=== PATIENT | female | born 1965 | race Caucasian/White ===

== ENCOUNTER 2023-09-16 10:27 | Outpatient (AMB) | payer OTHER, SELFPAY ==
--- NOTE | 2023-09-16 10:38 | AM.OFFWIN_ITS ---
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 Pt states she has a stuffy nose, head congestion, and pressure. 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 Reporting symptoms of sinus congestion, sore throat and difficulty swallowing. Low-grade fever. No family member is sick. No recent travel. Patient reports symptoms of malaise and fatigue. PFSH Social History Patient Tobacco Use Status: Current everyday Tobacco user Physical Exam Vital Signs: Last Vital Signs Temp 98.4 F 09/16/23 10:40 Pulse 101 H 09/16/23 10:40 BP 114/76 09/16/23 10:40 Pulse Ox 96 09/16/23 10:40 Oxygen Delivery Method Room Air 09/16/23 10:40 BMI result Body Mass Index 23.3 Const General: cooperative and healthy appearing Nutritional Appearance: well nourished Orientation/consciousness: patient oriented x3 Limitations: no limitations HEENT Head: Yes normal to inspection Eyes General: appearance normal, both eyes and all related structures Neck Neck: Yes normal visual inspection Chest Chest palpation & inspection: normal palpation of entire chest wall Resp Effort & Inspection: normal respiratory effort Neuro General: patient oriented x3 Assessment & Plan Assessment & Plan (1) Upper respiratory tract infection: Code(s): J06.9 - Acute upper respiratory infection, unspecified Plan: Antibiotics ordered. Increase fluid intake. Tylenol for aches and pains. If symptoms worsen, follow-up here for a recheck. Coding Level of Care Code Est Pt Level 3 (22268) Diagnoses Upper respiratory tract infection J06.9
[2023-09-16 10:40] VITALS: BP 114/76; PULSE 101; TEMP 36.9; O2SAT 96; BMI 23.3
== END 2023-09-16 11:25 | disposition home or self-care (01) ==
PROVIDERS: PCP Nurse Practitioner Family; Visit Provider Internal Medicine
DX: J06.9 Acute upper respiratory infection, unspecified (principal)
CPT/HCPCS: 99213

== ENCOUNTER 2025-05-18 08:30 | Outpatient (REF) | payer OTHER, SELFPAY ==
--- NOTE | ~2025-05-18 | XR_ITS ---
EXAMINATION: XR ANKLE, RIGHT CLINICAL INFORMATION: M25.571 - Pain in right ankle and joints of right foot. COMPARISON: None available. TECHNIQUE: AP, lateral, and mortise views of the right ankle. FINDINGS: On the AP and oblique views, there is a tiny cynthia of bone just inferior to the fibular head, which could represent a tiny avulsion fracture in the appropriate clinical setting. There is otherwise no fracture, dislocation, or suspicious bone lesion. There is normal alignment. Mortise is intact. Talar dome is normal. The subtalar joints and calcaneus appear normal. There is no evidence of ankle joint effusion. The soft tissues appear normal. XR/XR ankle RT min 3V IMPRESSION: 1. Query tiny avulsion fracture of the fibular head. Correlate for history of injury. 2. Otherwise, normal right ankle. Electronically signed by: Filippo Jorge MD 05/18/2025 11:51 AM EDT
--- OUTSIDE RECORDS SUMMARY | 2025-05-19 08:56 | XMS_ITS ---
Author Name [facility] Organization Unknown Care Team Organization Name Specialty Phone Email Start Date End Da te [facility] 10/09/2022 024 [facility] 06/11/20222023
--- OUTSIDE RECORDS SUMMARY | 2025-05-19 08:56 | XMS_ITS | Encounter Summary ---
Author Organization [facility] Address [address] [place] [address] Care Team Providers Care Director Industrial Relations Name Role Phone Margaret Reich MD Primary Care Provider [phone] Encounter Details Date Type Department Care Team ([facility] st Contact Info) Description 05/05/2025 Telephone Adult Medicine [facility] [address] [place] [phone] Margaret Reich MD [address] [place], [place] Social History Tobacco Use Types Packs/Day Years Used Date Smoking Tobacco: Every Day Cigarettes Smokeless Tobacco: Never Alcohol Use Standard Drinks/Week Comments Yes 0 (1 standard drink = 0.6 oz pur e alcohol) Housing Instability Answer Date Recorde d Are you worried that in the next 2 months you may not have stable housing? No 08/05/2024 Food Access & Nutrition Answer Date Rec orded Do you have access to a vari ety of food including fruits and vegetables? Yes 08/05/2024 Health Literacy Answer Date Recorded How often do you need to hav e someone help you when you read instructions, pamphlets, or other written material from your doctor or pharmacy? Never 08/05/2024 Caregiver: How often do you need to have someone help you when you read instructions, pamphlets, or other written material from your doctor or pharmacy? Not on file 08/05/2024 Financial Risk Answer Date Recorded How hard is it for you to pa y for the very basics like food, housing, medical care, and air conditioning / heating? Very hard 08/05/2024 Transportation Answer Date Recorded Has the lack of transportati on kept you from meetings, work, or from getting things needed for daily living? No Has the lack of transportati on kept you from medical appointments or from getting medications? No 08/05/2024 Social Isolation Answer Date Recorded How often do you feel lonely or isolated from th ose around you? Never 08/05/2024 Food Risk Answer Date Recorded Within the past 12 months we worried whether our food would run out before we got money to buy more. Sometimes true 025 Within the past 12 months th e food we bought just didn't last and we didn't have money to get more. Never true 08/05/2024 Dependent Care Answer Date Recorded Do you need help finding or paying for care for your loved ones. For example, child welfare consultant or elderly care for an older adult? No 08/05/2024 Education Answer Date Recorded Do you think completing more education or training, like finishing a GED, going to college, or learning a trade, would be helpful for you? No 08/05/2024 Employment and Income Answer Date Recor ded During the last four weeks, have you been actively looking for work? Patient declined 08/05/2024 Living Situation Answer Date Recorded What is your living situation? Unrecognized valu e 08/05/2024 Comments No Sex and Gender Information Value Date Recorded Sex Assigned at Female 06/24/2024 8:37 AM EST Legal Sex Female 9:48 PM EST Gender Identity Female 06/24/2024 8:37 AM EST Sexual Orientation Choose not to disclose 2023 5:21 PM EST Sexual Orientation Straight 06/28/2024 5: 21 PM EST documented as of this encounter Plan of Treatment Upcoming Encounters Date Type Department Care Team (Late st Contact Info) Description 07/15/2025 9:30 AM EST Office Visit Adult Medicine [address] [phone] Margaret Reich MD [address] [place] [address] 11/16/2025 10:15 AM EDT Office Visit [facility] [address] [phone] Fazal Rodriguez MD [address] [place] [phone] documented as of this encounter Visit Diagnoses Not on filedocumented in this encounter Additional Health Concerns Assessment Noted Time PHQ-9 Depression Total Score: 0 08/05/19 12:37 PM EST documented as of this encounter Care Teams Director Industrial Relations Relationship Specialty Start Date End Date Margaret Reich MD [address] [place] [phone] PCP - General Internal Medicine 08/11/24 documented as of this encounter
--- OUTSIDE RECORDS SUMMARY | 2025-05-19 08:56 | XMS_ITS | Clinical Summary ---
Author Organization [facility] [address] [facility] Address [address] [place] [address] Phone Care Team Providers Care Porcelain Waxer Name Role Phone Margaret Reich MD Primary Care Provider [phone] Allergies No known active allergies Medications magnesium oxide (MAG-OX) 400 mg (241.3 elemental magnesium) tablet Take 1 tablet (400 mg total) by mouth 1 (one) time each day. 90 tablet 03/30/20 25 Active simvastatin (ZOCOR) 40 mg tablet Take 1 Tablet by mouth at bedtime. 90 tablet 03/30/20 25 Active metoprolol succinate (TOPROL-XL) 50 mg 24 hr tablet Take 1 Tablet by mouth daily. 90 tablet 04/06/20 25 Active mometasone (ELOCON) 0.1 % cream Apply thin layer to the vulva nightly for 2 weeks and then every other night for 4 weeks. After 6 weeks use NEEDED FOR itching. 45 g 2 04/19/20 25 Active albuterol HFA (Ventolin HFA) 90 mcg/actuation inhaler Inhale 2 Puffs into the lungs every 4 hours as needed for Cough or Wheezing. 6.7 g 04/19/20 25 Active omeprazole (PriLOSEC) [address] capsule Take 1 capsule (40 mg total) by mouth 1 (one) time each day. 90 each 1 04/26/20 25 // 026 Active amLODIPine (NORVASC) 5 mg tablet Take 1 tablet (5mg total) by mouth 1 (one) time each day. 90 tablet 1 04/26/20 25 Active hydrOXYzine HCL (ATARAX) 10 mg tablet Take 1 tablet (10 mg total) by mouth every 8 (eight) hours if needed for anxiety. 270 tablet 05/05/20 25 Active lidocaine (LIDODERM) 5 % patch Apply to painful area 12 hours per day, remove for 12 hours. 30 each 2 05/16/20 25 Active hydrOXYzine HCL (ATARAX) 10 mg tablet Take 1 tablet (10 mg total) by mouth every 8 (eight) hours if needed for anxiety. 90 tablet 01/27/20 25 025 Discontinued(Re order) esomeprazole (NexIUM) [address] capsule Take 1 capsule (40 mg total) by mouth 2 (two) times a day. 180 capsule 04/19/20 25 025 Discontinued(Al ternate therapy) amLODIPine (NORVASC) 5 mg tablet Take 1 tablet (5 mg total) by mouth 1 (one) time each day. 30 tablet 04/19/20 25 025 Discontinued omeprazole (PriLOSEC) [address] capsule Take 1 capsule (40 mg total) by mouth 1 (one) time each day. 12/26/19 25 025 Discontinued(Du plicate order) Active Problems Problem Noted Date Diagnosed Date Anxiety 05/06/2025 Abnormal Pap smear of cervix 07/09/2024 Overview (07/09/2024): s/p LEEP; subsequent paps normal GERD (gastroesophageal reflux disease) Overview (07/09/2024): Esophageal motility disorder, Dr. Soares Normal gastric emptying study 04/2019 Palpitation 06/02/2023 Transaminitis 05/26/2019 IBS (irritable bowel syndrome) 01/21/2018 Overview (07/09/2024): Follows with GI Dr Soares Hypothyroidism 09/24/2017 Overview (07/09/2024): Follows with a naturopathic doctor Cervicalgia 08/26/2017 HTN (hypertension) 08/26/2017 Hyperlipidemia 08/26/2017 Migraine 08/26/2017 Encounters Date Type Department Care Team Description 05/05/2025 11:30 AM EDT Office Visit [address] [phone] Margaret Reich MD Primary osteoarthritis of right hand (Primary Dx); Primary hypertension; Mixed hyperlipidemia; Anxiety 05/05/[address] [phone] Margaret Reich MD from Last 3 Months Immunizations Immunization Administration Dates Next Due Pneumococcal polysaccharide 23 valent (Pneumovax 23) 2yo and older 04/18/2010 Td Tetanus diptheria (Tdvax) 7yo and older 09/30 Tdap Tetanus diptheria acell ular pertussis (Boostrix; Adacel) 7yo and older 06/23/2008 Surgical History Surgery Date Site/Laterality Comments OTHER SURGICAL HISTORY Bilateral PROCEDURE: ---- OTHER ----; COMMENT: breast silicone implants/augmentation OTHER SURGICAL HISTORY PROCEDURE: ---- OTHER ----; COMMENT: nasal septum repair CARPAL TUNNEL RELEASE Right PROCEDURE: CO NEUROPLASTY &/TRANSPOS MEDIAN NRV CARPAL TUNNE CERVICAL BIOPSY W/ LOOP ELECTRODE EXCISION PROCEDURE: CO CONIZATION CERVIX W/WO D&C RPR ELTRD EXC; COMMENT: subsequent pap normal OTHER SURGICAL HISTORY PROCEDURE: HISTORICAL D&C BREAST BIOPSY Bilateral PROCEDURE: BX BREAST; PERC NEEDLE CORE W/IMAG GUID; COMMENT: all b9 OTHER SURGICAL HISTORY PROCEDURE: IMPLANT BREAST SILICONE/EQ BREAST SURGERY Right PROCEDURE: CO UNLISTED PROCEDURE BREAST; COMMENT: b9 implants 2014 BREAST ENHANCEMENT SURGERY W IMPLANT Medical History Medical History Date Comments Abnormal Pap smear of cervix DX: Abnormal Pap smear of cervix; COMMENT: s/p LEEP; subsequent paps normal GERD (gastroesophageal reflux disease) DX:GERD (gastroesophageal reflux disease); COMMENT: Esophageal motility disorder, Dr. Soares Cervicalgia 08/26/2017 DX:Cervicalgia Migraine 08/26/2017 DX:Migraine HTN (hypertension) 08/26/2017 DX:HTN (hyper tension) Hyperlipidemia 08/26/2017 DX:Hyperlipidemi a Tobacco use DX:Tobacco use; COMMENT: Since age 15, 07/2017 Not interested in quitting. Hypothyroidism 09/24/2017 DX:Hypothyroidis m; COMMENT: Follows with a naturopathic doctor IBS (irritable bowel syndrome) 01/21/2018 D X:IBS (irritable bowel syndrome); COMMENT: Follows with GI Dr Soares Family History Medical History Relation Name Comments No Known Problems Brother 1 No Known Problems Brother 2 Other: pancreatic cancer Father Lung cancer Mother 2nd hand smoke Multiple sclerosis Sister Breast cancer Neg Hx Colon cancer Neg Hx Ovarian cancer Neg Hx Relation Name Status Comments Brother 1 Alive Brother 2 Alive Father Mother Sister Alive Social History Tobacco Use Types Packs/Day Years [...] care for your loved ones. For example, exceptional children teacher or elderly care for an older adult? [...] Orientation Straight 06/28/2024 5: 21 PM EST Obstetrics History Para Term AB IAB SAB Ectopic Multiple Livin g Live Births 0 0 0 Last Filed Vital Signs Vital Sign Reading Time Taken Comments Blood Pressure 122/78 05/05/2025 11:40 AM EDT Pulse 76 05/05/2025 11:40 AM EDT Temperature 36.4 C (97.5 F) 05/05/2025 11:40 AM EDT Respiratory Rate 14 05/05/2025 11:40 AM EDT Oxygen Saturation 98% 05/05/2025 11:40 AM EDT Inhaled Oxygen Concentration - - Weight 69.4 kg (153 lb) 05/05/2025 11:40 AM EDT Height 167.6 cm (5' 6 ) 05/05/2025 11:40 AM EDT Body Mass Index 24.69 05/05/2025 11:40 AM EDT Plan of Treatment Upcoming Encounters Date Type Department Care Team (Late st Contact Info) Description 07/15/2025 9:30 AM EST Office Visit Adult Medicine [address] [phone] Margaret Reich MD [address] [place] [address] 11/16/2025 10:15 AM EDT Office Visit [facility] [address] [place] [phone] Fazal Rodriguez MD [facility] [place] [phone] Health Maintenance Due Date Last Done Comments Hepatitis B Vaccines (1 of 3 - 19+ 3-dose series) 1986 Pneumococcal Vaccine: 50+ Years (2 of 2 - PCV) 04/18/2011 04/18/2010 RSV Immunization Adult Patients (1 - Risk 50-74 years 1-dose series) 2017 Zoster Vaccines (1 of 2) 2017 Lung Cancer Screening (Low Dose CT) 07/13/2022 Hypertension/CHF/CAD Annual BMP Blood Test 08/18/2024 08/18/2023 COVID-19 Vaccine (3 - 2024- season) 2025 09/04/2021, 08/14/2021 Social Influencers of Health Screening 08/05/2025 08/05/2024 Influenza Vaccine (#1) 2026 Postp oned from 04/04/2025 (Patient Refused) Cervical Cancer Screening: HPV 11/27/2026 11/27/2021 Breast Cancer Screening 12/28/2026 12/29/19, 12/18/2023, 12/18/2023, Additional history exists Colorectal Cancer Screening: Colonoscopy 07/13/2028 07/13/2018 DTaP,Tdap,and Td Vaccines (3 - Td or Tdap) 09/30/2028 09/30/2018, 06/23/2008 Cholesterol Screening (Lipid Panel) 04/18/2030 04/18/2025, 03/06/2023 HIV Screening Completed 08/20/2017 Hepatitis C Screening Completed 08/20/2017 Depression Screening Completed 08/05/2024, 08/18/19 24 HIB Vaccines Aged Out No longer eligi ble based on patient's age to complete this topic HPV Vaccines Aged Out No longer eligi ble based on patient's age to complete this topic Hepatitis A Vaccines Aged Out No long er eligible based on patient's age to complete this topic IPV Vaccines Aged Out No longer eligi ble based on patient's age to complete this topic MMR Vaccines Aged Out No longer eligi ble based on patient's age to complete this topic Meningococcal ACWY Vaccine Aged Out N o longer eligible based on patient's age to complete this topic Meningococcal B Vaccine Aged Out No l onger eligible based on patient's age to complete this topic RSV Immunization Patients Under 20 months Aged Out No longer eligible based on patient's age to complete this topic Varicella Vaccines Aged Out No longer eligible based on patient's age to complete this topic Procedures Procedure Name Priority Date/Time Associated Diagnosis Comments LIPID PANEL WITH REFLEX TO DIRECT LDL Routine 04/18/2025 8:56 AM EDT Mixed hyperlipidemia MG MAMMO DIGITAL SCREENING W OLIVERIO BILAT Routine 12/28/2024 9:39 AM EDT Encounter for screening mammogram for breast cancer DEPRESSION SCREENING Routine 08/18/2023 ANNUAL BMP BLOOD TEST Routine 08/18/2023 HPV Routine 11/27/2021 EXTERNAL COLONOSCOPY REPORT Routine 07/13/2018 10:05 AM EST HEPATITIS C SCREENING Routine 08/20/2017 HIV SCREENING Routine 08/20/2017 from Last 3 Months or Most Recently Relevant to Health Maintenance Results * (ABNORMAL) Lipid panel with reflex to direct LDL (04/18/2025 8:56 AM EDT) Cholesterol 180 0 - 200 mg/dL LAB CHEMISTRY METHOD 04/18/2025 1:06 PM EDT [facility] Triglycerides 228(H) 0 - 150 mg/dL LAB CHEMISTRY METHOD 04/18/2025 1:06 PM EDT [facility] HDL 40 >=40 mg/dL LAB CHEMISTRY METHOD 04/18/2025 1:06 PM EDT [facility] LDL Calculated 94 0 - 100 mg/dL LAB CHEMISTRY METHOD 04/18/2025 1:06 PM EDT [facility] Comment:Estimated LDL Calcul ated using equation: Total cholesterol - HDL cholesterol - (Triglycerides/5) VLDL Cholesterol Matthew 45.6 mg/dL LAB CHEMISTRY METHOD 04/18/2025 1:06 PM EDT [facility] Non HDL Chol. (LDL+VLDL) 140 <145 mg/dL LAB CHEMISTRY METHOD 04/18/2025 1:06 PM EDT [facility] Chol/HDL Ratio 4.5(H) 0.0 - 4.4 LAB CHEMISTRY METHOD 04/18/2025 1:06 PM EDT [facility] Blood Venous blood specimen / Unknown Venipuncture / Unknown 04/18/2025 8:56 AM EDT 04/18/2025 8:56 AM EDT us Margaret Reich MD LAB BLOOD ORDERABLES Final Resul t [facility] [address] [place] [address], * MG Mammo Digital Screening w Oliverio bilat (12/28/2024 9:39 AM EDT) Anatomical Region Laterality Modality Breast Bilateral Mammography 12/28/2024 11:5 0 AM EDT Impressions 12/28/2024 11:59 AM EDT Benign. Six-month follow-up breast MRI was recommended and has not yet been performed. Therefore, breast MRI is recommended to the scheduled. BI-RADS CATEGORY: 2 - BENIGN RECOMMENDATION: Screening bilateral mammogram is recommended in 1 year. Mammo Location: [facility], [address] [place] [address], [id number], . -------- FINAL REPORT -------- Dictated By: Linda Hankins Dictated Date: 12/28/2024 11:50 ET Assigned Physician: Linda Hankins Reviewed and Electronically Signed By: Linda Hankins Signed Date: 12/28/2024 11:59 ET Workstation ID: [id number] Transcribed By: Self Edit Transcribed Date: 12/28/2024 11:57 ET Narrative 12/28/2024 11:59 AM EDT CLINICAL: 59 years old, Female, routine annual exam. Clinical breast exam: . COMPARISON: Mammograms dating back to 10/23/2020 with most recent of 12/18/2023. Breast MRI 12/31/2023 and 06/24/2024. TECHNIQUE: Bilateral MLO and CC views were obtained digitally with 3-D mammogram (digital breast tomosynthesis). Implant-displaced and [id number]-[id number]-[id number] imaging was performed. Computer-aided detection was utilized in evaluation of this exam (CAD). FINDINGS: There is no evidence of suspicious mass or architectural distortion. No worrisome calcifications are evident. The visualized silicone implants are intact. There has been no significant change from prior exam(s). BREAST DENSITY: C - The breasts are heterogeneously dense which may obscure small masses. Procedure Note Linda Hankins MD - 12/28/2024 CLINICAL: 59 years old, Female, routine annual exam. Clinical breastexam: . COMPARISON: Mammograms dating back to 10/23/2020 with most recent of12/18/2023. Breast MRI 12/31/2023 and 06/24/2024. TECHNIQUE: Bilateral MLO and CC views were obtained digitally with 3-Dmammogram (digital breast tomosynthesis). Implant-displaced hwlvxw-ygrrhev-feapratui imaging was performed. Computer-aided detection wasutilized in evaluation of this exam (CAD). FINDINGS: There is no evidence of suspicious mass or architectural distortion. Noworrisome calcifications are evident. The visualized silicone implantsare intact. There has been no significant change from prior exam(s). BREAST DENSITY: C - The breasts are heterogeneously dense which mayobscure small masses. IMPRESSION: Benign. Six-month follow-up breast MRI was recommended and has not yetbeen performed. Therefore, breast MRI is recommended to the scheduled. BI-RADS CATEGORY: 2 - BENIGN RECOMMENDATION: Screening bilateral mammogram is recommended in 1 year. Mammo Location: [facility], [address] [place] [address], [id number], . -------- FINAL REPORT -------- Dictated By: Linda Hankins Dictated Date: 12/28/2024 11:50 ET Assigned Physician: Linda Hankins Reviewed and Electronically Signed By: Linda Hankins Signed Date: 12/28/2024 11:59 ET Workstation ID: [id number] Transcribed By: Self Edit Transcribed Date: 12/28/2024 11:57 ET Result [facility] Margaret Reich MD IMG BI PROCEDURES Final Result * Annual BMP Blood Test (08/18/2023) Pathologist [facility] Annual BMP Blood Test abstracted Historical Provider HEALTH MAINTENANCE Final Result * Depression Screening (08/18/2023) [facility] Depression Screening abstracted Historical Provider HEALTH MAINTENANCE Final Result * Cervical Cancer Screening: HPV (11/27/2021) [facility] Cervical Cancer Screening: HPV negative, abstracted Result [facility] Historical Provider HEALTH MAINTENANCE Final Result * External Colonoscopy Report (07/13/2018 10:05 AM EST) Anatomical Region Laterality Modality Endoscopy Result [facility] Historical Provider GI~PROCEDURE ORDERABLES F inal Result * HIV Screening (08/20/2017) [facility] HIV Screening abstracted Historical Provider HEALTH MAINTENANCE Final Result * Hepatitis C Screening (08/20/2017) [facility] Hepatitis C Screening abstracted Historical Provider HEALTH MAINTENANCE Final Result from Last 3 Months or Most Recently Relevant to Health Maintenance Insurance [facility] Care Teams Porcelain Waxer Relationship Specialty Start Date End Date Margaret Reich MD [address] [place] [phone] PCP - General Internal Medicine 08/11/24
== END 2025-05-18 08:31 | disposition home or self-care (01) ==
LOC: HO.HOSX 08:30
PROVIDERS: Visit Provider Physician Assistant
DX: S93.401A Sprain of unspecified ligament of right ankle, initial encounter (principal); X50.1XXA Overexertion from prolonged static or awkward postures, initial encounter
CPT/HCPCS: 73610; 99202

== ENCOUNTER 2025-05-18 11:36 | Outpatient (AMB) | payer OTHER, SELFPAY ==
--- NOTE | 2025-05-18 11:41 | A.OFFVIS_ITS ---
Vital Signs 05/18/25 11:49 Height 5 ft 6 in Weight 150 lb BMI 24.2 Intake Visit Reasons: UC f/u RT ankle avulsion Intake Note: Nel is a 59 year old female who presents today as a new patient for an urgent care follow up of right ankle fracture, DOI 04/19/25. Patient presented to [facility], with complaints of pain and swelling, reporting she was leaving her home and stepped down wrong off the steps causing her to twist her ankle. She was placed in a boot and referred to orthopedics. Today patient reports that she is doing a lot better, still has some discomfort at the lateral and medial aspect of ankle. States her bruising is improving. Currently working with no restrictions. Allergies No Known Allergies Allergy (Verified 05/18/25 11:50) Medication List - Last Reconciled 05/18/25 by Arianne Lebron PA-C albuterol sulfate 90 mcg/actuation (Ventolin HFA) inhalation amlodipine 5 mg PO DAILY esomeprazole magnesium 40 mg PO DAILY hydroxyzine HCl 10 mg PO TID magnesium oxide 400 mg PO DAILY metoprolol succinate ER 50 mg PO DAILY ondansetron HCl 4 mg PO Q8H PRN simvastatin 40 mg PO BEDTIME HPI HPI UC f/u RT ankle avulsion: Details: 59-year-old female presents to the office today for an injury she sustained to her right ankle on 04/19/2025. She states she was walking and stepped down on the steps wrong when she twisted her ankle. She was seen at an urgent care facility where x-rays were obtained and she was placed in a walking boot and referred to our office for ortho eval. She states since the date of injury the swelling and pain have subsided. [facility] Social History (Updated 05/18/25 @ 11:48 by ELIGIO Flores) Patient Tobacco Use Status: Current everyday Tobacco user Current occupational status: employed Current occupation: SUPERVISOR [employer] Review of Systems Const All systems reviewed & are unremarkable except as noted in HPI and below Physical Exam Vital Signs: BMI result Body Mass Index 24.2 Const General: cooperative and no acute distress Orientation/consciousness: patient oriented x3 Resp Effort & Inspection: normal respiratory effort and able to speak in complete sentences Cardio Peripheral pulses: Peripheral pulses 2+ throughout Neuro General: patient oriented x3 Extrem Other: Right ankle is normal to inspection no significant swelling. No ecchymosis. Mild tenderness over the ATFL. Full range of motion without crepitus or laxity. Neurovascularly intact. Results Reviewed Results Reviewed: X-rays of the right ankle obtained in the office today and reviewed by me show a small avulsion fragment at the base of the medial malleolus. Assessment & Plan Assessment & Plan (1) Right ankle sprain: Code(s): S93.401A - Sprain of unspecified ligament of right ankle, initial encounter Category: Medical Plan: She was given a lace-up ankle brace to use while weight-bearing as tolerated with regular street shoes. She can discontinue the use of the boot. I did place an order for physical therapy to work on range of motion gentle strength and proprioceptive training. I did stress the importance of working with physical therapy to regain her strength and stability and reduce the risk of chronic pain and further injury. The patient does express understanding and will see me back if symptoms persist or worsen otherwise follow up as needed. Orders: Orders PT Evaluation and Treatment Today S93.401A - Sprain of unspecified ligament of right ankle, initial encounter XR ankle RT min 3V Today M25.571 - Pain in right ankle and joints of right foot Coding Level of Care Code New Pt Level 3 (22198) Complex EM visit Add On G2211 Diagnoses Right ankle sprain S93.401A
[2025-05-18 11:49] VITALS: BMI 24.2
--- OUTSIDE RECORDS SUMMARY | 2025-05-18 14:42 | XMS_ITS | Data Portability ---
Author Organization [facility], [address] Address [address] [place] [address] Assessment No assessment recorded. Plan of Treatment Reminders Order Date Submit Date Provider Last Modified By Organization Details Last Modified Time Details Appointments None recorded. Lab None recorded. Referral None recorded. Procedures None recorded. Surgeries None recorded. Imaging XR, chest, 2 view 2023 024 [address], [address] [place], [address], 4 14:53:16 Medication Orders azithromyci n 250 mg tablet 2023 024 [facility] #[id number], [address] [facility] [place], [address], 4 14:50:32 ProAir HFA 90 mcg/actuati on aerosol inhaler 2023 024 [facility] #[id number], [address] [place], [address], 4 18:22:23 prednisone 20 mg tablet 2023 024 [facility] #[id number], [address] [place], [address], 4 18:22:23 benzonatate 200 mg capsule 2023 024 [facility] #[id number], [address] [place], [address], 4 18:22:23 Patient TargetsNo targets recorded. Patient Instructions Encounter Date Encounter Id Patient Instructions Last Modified By Organization Details Last Modified Time 09/19/2023 [id number] bronchitis: care instructions Not available 09/19/2023 18:22:18 09/23/2023 [id number] cough: care instructions Not available 09/23/2023 14:17:28 Reason for Referral None Reported. Results Created Date Observation Date Name Description Value Unit Range Abnormal Flag Note LastModifiedBy Organization Detail LastModifiedTime 09/23/19 24 09/23/2023 XR, chest , 2 view No observ ation record ed. [email or web address] [facility] [address] [place], [address], 09/23/2023 15:07:10 Result Notes None recorded. Problems Name Problem SNOMED Code Status Onset Date Resolution Date Notes Provider Name and Address Organization Details Recorded Time Asthma 020069125 Active ABHIJIT dailey, PA - [facility] 4 14:10:03 Hyperlipidemia 84579880 Active 2023 CHARLY Baltazar [address] , [place], [address], [place] - [facility] 4 18:17:43 Hypertensive disorder 97475809 Active 2023 CHARLY Baltazar [address] , [place], [address], [place] - [facility] 4 18:17:53 Gastroesophage al reflux disease 294214975 Active 2023 CHARLY Baltazar [address] , [place], [address], [place] - [facility] 4 18:18:06 Esophageal dysmotility 919793926 Active 2023 CHARLY Baltazar [address] , [place], [address], [place] - [facility] 4 18:18:30 Problem Notes None recorded. Procedures Surgical History Date Name Laterality Status Provider Name and Address Organization Details Recorded Time 09/19/19 24 Virtual Visit completed CHARLY Baltazar [address] [place], [address], [place] - [facility] 09/19/2023 18:14:24 Carpal tunnel surgery completed ABHIJIT NIEVES PA - [facility] 09/23/2023 14:07:42 Breast augmentation w/implt completed ABHIJIT NIEVES PA - [facility] 09/23/2023 14:07:56 Imaging Results None recorded. Procedure Notes None recorded. Medical Equipment None Reported. Allergies No known drug allergies Medications Name Sig Start Date Stop Date Status Note LastModified by Organization Details LastModified Time azithromycin 250 mg tablet TAKE 2 TABLETS BY MOUTH TODAY, THEN TAKE 1 TABLET DAILY FOR 4 DAYS DIRECTED active Not Available Not Available No t Available benzonatate 200 mg capsule TAKE 1 CAPSULE BY MOUTH THREE TIMES A DAY FOR 5 DAYS *NOT COVERED active Not Available Not Available No t Available metoprolol succinate ER 50 mg tablet,extende d release 24 hr TAKE 1 TABLET BY MOUTH EVERY DAY active Not Available Not Available No t Available ondansetron HCl 4 mg tablet active Not Available Not Available Not Available famotidine 40 mg tablet active Not Available Not Available No t Available prednisone 20 mg tablet TAKE 3 TABS A DAY FOR 3 DAYS, 2 TABS A DAY FOR 3 DAYS, 1 TAB A DAY FOR 3 DAYS active Not Available Not Available No t Available amlodipine 5 mg tablet TAKE 1 TABLET BY MOUTH EVERY DAY active Not Available Not Available No t Available simvastatin 40 mg tablet active Not Available Not Available No t Available magnesium oxide 400 mg (241.3 mg magnesium) tablet TAKE 1 CAPSULE (400 MG) BY MOUTH DAILY. active Not Available Not Available No t Available esomeprazole magnesium 40 mg capsule,delaye d release Take 1 capsule every day by oral route. active Not Available Not Available No t Available hydroxyzine HCl 10 mg tablet TAKE 1 TABLET BY MOUTH THREE TIMES A DAY NEEDED FOR ANXIETY active Not Available Not Available No t Available mometasone 0.1 % topical cream APPLY THIN LAYER TO THE VULVA NIGHTLY FOR 2 WEEKS AND THEN EVERY OTHER NIGHT FOR 4 WEEKS. AFTER 6 WEEKS USE NEEDED FOR ITCHING active Not Available Not Available No t Available Ventolin HFA 90 mcg/actuation aerosol inhaler INHALE 2 PUFFS INTO THE LUNGS EVERY 4 HOURS FOR 30 DAYS active Not Available Not Available No t Available hydroxyzine HCl active Not Available Not Available Not Available amlodipine active Not Available Not Av ailable Not Available simvastatin active Not Available Not A vailable Not Available metoprolol succinate active Not Available Not Available No t Available ondansetron active Not Available Not A vailable Not Available Nexium active Not Available Not Availa ble Not Available magnesium 400 mg (as magnesium oxide) tablet Take by oral route. active Not Available Not Available No t Available Vitals Date Recorded Body height Body mass index (BMI) Body weight Body temperature Respiratory rate Heart rate Oxygen saturation Oxygen saturation in Arterial blood by Pulse oximetry Systolic And Diastolic Provider Name and Address Organization Details Last Updated DateTime 4 167.64 cm 23.2 kg/m2 00306.3 g 98.7 [degF] 18 /min 104 /min 95 % 95 % 126/87 mm[Hg] ABHIJIT NIEVES PA [facility] 4 14:12:23 Social History Question Answer Notes LastModified by [employer] Details LastModified Time Tobacco Smoking Status Current Every Day Smoker ABHIJIT dailey PA [place] [facility] 09/23/2023 14:08:16 Which Illicit Or Recreational Drugs Have You Used? Marijuana Information not available 09/23/2023 How Much Tobacco Do You Smoke? 0.5 PPD Information not available 09/23/2023 Sex: Unknown Functional Status Question Answer Note LastModified by [employer] Details LastModified Time Do you use any illicit or recreational drugs? Yes Information not available 09/23/2023 What is your level of alcohol consumption? Occasional Information not available 09/23/2023 Mental Status None recorded. Family History Nothing Reported. Medical History No medical history recorded. Gynecological History Statement/Question Response Is there any chance of ? No Obstetrics History GPAL:G 0 P 0 0 0 0 Immunizations Vaccine Type Date Status Note Provider Nam e and Address Organization Details Recorded Time COVID-19, mRNA, LNP-S, PF, 30 mcg/0.3 mL dose 2 completed CHARLY Baltazar [address] [place], [address], [place] - [facility] 09/19/2023 18:15:46 COVID-19, mRNA, LNP-S, PF, 30 mcg/0.3 mL dose 2 completed CHARLY Baltazar [address], [place], [address], [place] - [facility] 09/19/2023 18:15:46 pneumococcal polysaccharide PPV23 0 completed CHARLY Baltazar [address], [place], [address], [place] - [facility] 09/19/2023 18:15:46 Tdap 8 completed CHARLY Baltazar [address], [place], [address], [place] - [facility] 09/19/2023 18:15:46 Td (adult), 2 Lf tetanus toxoid, preservative free, adsorbed 9 completed CHARLY Baltazar [address], [place], [address], [place] - [facility] 09/19/2023 18:15:46 Past Encounters Encounter ID Performer Location Encounter Start Date Encounter Closed Date Diagnosis/Indication Diagnosis SNOMED-CT Code Diagnosis ICD10 Code Diagnosis IMO Codes Diagnosis Note [id number] [address] [address] [place] [address] 11/06/2018 11:49:24 11/06/2018 12:14:18 [id number] [address] [place] [address] 02/27/2019 13:00:37 02/27/2019 14:10:59 [id number] [address] [place] [address] 07/16/2019 13:50:51 07/16/2019 14:54:54 [id number] [address] [place] [address] 10/31/2020 14:26:54 10/31/2020 15:44:48 [id number] [address] [place] [address] 08/16/2017 13:12:34 08/16/2017 14:17:12 [id number] [address] [place] [address] 04/03/2016 13:40:13 04/03/2016 14:22:58 [id number] [address] [place] [address] 06/09/2020 12:03:50 06/09/2020 14:46:53 [id number] [address] [place] [address] 06/03/2015 08:18:01 06/03/2015 08:51:05 [id number] [address] [place] [address] 11/28/2015 11:22:09 11/28/2015 12:39:13 [id number] CHARLY Baltazar [address] [address] 09/19/2023 18:02:22 09/19/2023 19:18:17 Acute bronchitis 00623235 J20.9 Acute bronchitis is a common clinical condition characteri zed by an acute onset but persistent cough, with or without sputum production . It is typically self-limit ed, resolving within one to three weeks. Symptoms result from inflammati on of the lower respirator y tract and are most frequently due to viral infection. Treatment is focused on patient education and supportive care. Antibiotic s are not needed for the great majority of patients with acute bronchitis but are greatly overused for this condition. Reducing antibiotic use for acute bronchitis is a national and internatio [facility] health care priority. In most patients, the cough persists for 1 to 3 weeks, with a average duration of 18 days. The cough may be associated with either purulent or nonpurulen t sputum production The presence of purulent sputum is a nonspecifi c finding and does not appear to be predictive of bacterial infection or that antibiotic s are needed. For the great majority of patients, use of antibiotic s does not hasten recovery or prevent complicati ons but puts patients at increased risk of adverse effects including potentiall y severe complicati ons such as Clostridio ides difficile infection and anaphylaxi s. Non-Pharma cological treatment for coughin . Throat lozenges2. Hot tea3. Honey4. Smoking cessation5 . Avoidance of secondhand smoke. Pharmacolo gical Treatment: 1. Robatussin or Guafenasin 2. Antihistam ines3. Dextrometh oraphen I would plan on being seen again if any of the following symptoms develop:1. Fever (100.5)2. Shortness of breath3. Wheezing4. Worsening Cough. I would go to the ER if you develop:1. Severe Shortness of breath2. Chest Pain3. Wheezing4. Coughing up Blood [id number] CHARLY Baltazar [address] [facility] [address] [place] [address] 09/23/2023 13:51:35 09/23/2023 14:53:16 Cough 85109521 R05.9 You are being treated for a cough that most likely starting to turn into a bacterial infection. There is possibly a small pneumonia starting in your right lung. Please continue with the prednisone you were prescribed and the inhaler as needed The following are my recommenda tions to help you with your symptoms and recovery.1 . Take Ibuprofen or Tylenol if you do not have any allergies to these medication s. If you take a blood thinner you should not take NSAIDS like Ibuprofen. These medication will help with the inflammati on in your respirator y tract which should help the cough.2. Do not take any decongesta nts at this time because this will dry out that tract too much. If you have a lot of nasal congestion you can try nasal decongesta nts, but I would not take them more than 5 days.3. Use a humidifier or add a cup of water by your bed. Sometimes if our sleeping environmen t is too dry this can lead to cough4. Salt Water Gargles5. Saline nasal spray is helpful. I would be seen again if you develop any of the following. 1. Cough last longer than 3 weeks - and has not worsened2. You develop a thick productive cough3. Develop shortness of breath or wheezing4. Develop achy feel or discomfort in a specific chest location5. Fever > 100.5 I would go immediatel y to the Emergency Room if you develop:1. Chest Pain2. Severe Shortness of breath3. Coughing up Blood. Most coughs will resolve on their own without any interventi on in 3 weeks. If they last longer we need to evaluate and rule out some other condition like Acid Reflux, or lung pathology. Thank you for using [facility] today - please don't hesitate to contact up or return to see if you have any questions or concerns. Health Concerns Section Related Observation LastModified by Organization Detai ls LastModified Time None Recorded Concern Status LastModified by Organization Details LastModified Time None Recorded Advance Directives Directive None Recorded Payers Insurance Date Sequence Insurance Name Policy Number Policy Taveras Covered Member ID Taveras Member ID Guarantor Name 09/23/2023 1 [facility] (MEDICAID REPLACEMENT - HMO) JR Nel Kee [id number] Nel Kee Notes Date Note Type Note Provider Name and Address Organization Details Recorded Time 09/19/19 24 text/ht ml CoughReported by PatientHPIFor associated symptoms, patient reportspost nasal dripbut reportsno fever,no chills,no chest pain,no heartburn,no nausea,no vomiting,no edema,no agitation, andno wheezing. For source of patient information, patient reportsinformation obtained from patientandpatient arrived at urgent care ambulatory. For quality, patient reportsintermittentandsymptoms worse with lying down. For severity, patient reportsmoderate. For duration, patient reportsintermittent. For timing, patient reportsimproving. For context, patient reportspatient denies vapingandnon-smoker. Verified the Patient's Name and at the start of visit.Audio/Visual Technology was used and functioning properly.Patient (and Guardian) - verbally understands limitations of a medical exam using A/V Technology - understands alternative treatment would be to visit an on-site medical facility.The patient did confirm they are physically located in the state that I hold a valid medical license. 57 y/o female with recurrent bronchitis for virtual visit. she started taking azithromycin for sinus infection 3 days ago and is now having cough and wheeze. This happens annually and she usually needs prednisone and an inhaler [place], [address], [place] [facility] [place] [facility] 09/19/2023 18:25:33 09/23/19 24 text/ht ml 57 y/o female here with worsening cough. Was treated with azithro a week ago, then started on prednisone and albuterol for cough and wheezing. She is still wheezing and is having a very hard time sleeping [place], [address], PA - [facility] 09/23/2023 14:53:04 OBGyn Episode No OBEpisode recorded.
== END 2025-05-18 12:03 | disposition home or self-care (01) ==
LOC: HO.HOS 11:36
PROVIDERS: PCP Nurse Practitioner Family; Visit Provider Physician Assistant
DX: S93.401A Sprain of unspecified ligament of right ankle, initial encounter (principal)
CPT/HCPCS: 99203

== ENCOUNTER → 2025-05-18 11:37 | Outpatient (BNV) | payer OTHER, SELFPAY | PROVIDERS: Visit Provider Radiology Diagnostic Radiology | DX: M25.571 Pain in right ankle and joints of right foot (principal) | CPT/HCPCS: 73610 ==

== ENCOUNTER 2025-06-27 11:28 | Outpatient (AMB) | payer OTHER, SELFPAY ==
[2025-06-27 12:01] VITALS: BP 114/70; PULSE 77; RESP 14; TEMP 36.9; O2SAT 96; BMI 25.8
--- NOTE | 2025-06-27 12:01 | MHC.OFFWIV ---
Intake Vital Signs 06/27/25 12:01 Height 5 ft 6 in Weight 160 lb BMI 25.8 BP 114/70 Blood Pressure Location Rt brachial Position Sitting Respiration 14 Pulse 77 Pulse Source Pulse Oximeter Temp 98.4 F Temp Source Oral Pulse Oximetry (%) 96 Intake Visit Reasons: EP Cough Intake Note: pt presents with chest congestion with productive coughing x 8 days Patient Tobacco Use Status: Current everyday Tobacco user Allergies No Known Allergies Allergy (Verified 06/27/25 12:02) Do you need a note to return to daycare/school/sports/work: No HPI HPI Comments History of Present Illness Details History - The patient is a 59-year-old male presenting with cough, wheezing, and difficulty sleeping due to respiratory symptoms. - The patient reports a history of cold symptoms with a productive cough and wheezing that started a week ago. - The patient denies any history of COPD or asthma. - The patient experienced a low-grade fever and fatigue but reports feeling better now, although sleep is still affected. - The patient had a similar illness three years ago, which nearly progressed to pneumonia, requiring antibiotics. - The patient is currently using kmwq-hxo-mmfzsnr cough medication. - She denies fever, chills, CP, SOB, abd pain, or n/v/d. Physical Exam General: Cooperative, healthy appearing, comfortable and no acute distress Orientation/consciousness: Patient oriented x3 Limitations: No limitations Head: Normal to inspection Ears: Hearing grossly normal bilaterally, external ears normal and TM's normal bilaterally Nose: Normal external nose present, normal nares present, and no nasal discharge present. Face and sinus: Sinuses nontender to palpation. Mouth: Normal oral and palatal mucosa present and moist mucous membranes noted. Throat: Tonsils normal. Uvula is midline. Posterior oropharynx with erythema and no exudates. Eyes: Appearance normal, both eyes and all related structures Neck: Normal visual inspection, full ROM. No lymphadenopathy noted. Respiratory: Clear to auscultation bilaterally. Normal respiratory effort, able to speak in complete sentences. No respiratory distress, not tachypneic, no tripod positioning and no use of accessory muscles. Cardiovascular: Regular rate and rhythm. Normal S1 and S2. No m/r/g noted Skin: No rashes or lesions noted Patient was informed and verbally consented to the use of an ambient scribe for clinic note documentation during this visit [facility] Social History (Updated 05/18/25 @ 11:48 by Ginny Moreno [facility]) Patient Tobacco Use Status: Current everyday Tobacco user Current occupational status: employed Current occupation: [employer] Review of Systems Const All systems reviewed & are unremarkable except as noted in HPI and below Physical Exam Vital Signs: Last Vital Signs Temp 98.4 F 06/27/25 12:01 Pulse 77 06/27/25 12:01 Resp 14 06/27/25 12:01 BP 114/70 06/27/25 12:01 Pulse Ox 96 06/27/25 12:01 BMI result Body Mass Index 25.8 Assessment & Plan Assessment & Plan (1) Cough: Code(s): R05.9 - Cough, unspecified Qualifiers: Cough type: acute Qualified Code(s): R05.1 - Acute cough Plan Most likely URI vs covid vs flu vs RSV vs bronchitis vs pneumonia plan - Prescribed azithromycin (Z-Nas) for bacterial coverage. - Prescribed prednisone to reduce inflammation and improve breathing. - Prescribed cough medicine to alleviate symptoms. - Prescribed an inhaler to assist with wheezing and respiratory distress. - Discussed the possibility of a viral infection given the symptoms and current viral trends. - will call with results of the resp panel - Advised holding hydroxyzine while on azithromycin to avoid interactions. - follow up as needed Orders: Orders SARS-CoV2/FLU/RSV Today R09.89 - Other specified symptoms and signs involving the circulatory and respiratory systems Medications: New benzonatate 100 mg PO bid-tid PRN 21 caps 0RF Cough 7 days prednisone 40 mg (2 x 20 mg) PO DAILY 10 tabs 0RF 5 days albuterol sulfate 90 mcg/actuation 2 puffs inhalation Q6H PRN 8.5 grams 0RF shortness of breath or wheezing or cough azithromycin For 250 mg dose pack: take 500 mg today (day 1), then 250 mg for 4 days (days 2-5) PO 6 tabs 0RF Coding Level of Care Code Est Pt Level 3 (70180) Diagnoses Acute cough R05.1 Cough type: acute
--- OUTSIDE RECORDS SUMMARY | 2025-06-27 15:09 | XMS_ITS | Clinical Summary ---
Author Organization [facility] [address] [facility] Address [address] [place] [address] Phone Care Team Providers Care Pacu Rn Name Role Phone Margaret Reich MD Primary Care Provider [phone] Allergies No known active allergies Medications metoprolol succinate (TOPROL-XL) 50 mg 24 hr [...] or Wheezing. 6.7 g 04/19/20 25 Active amLODIPine (NORVASC) 5 mg tablet Take [...] hours. 30 each 2 05/16/20 25 Active magnesium oxide (MAG-OX) 400 mg (241.3 elemental magnesium) tablet Take 1 tablet (400 mg total) by mouth 1 (one) time each day. 90 tablet 1 06/07/20 25 Active simvastatin (ZOCOR) 40 mg tablet Take 1 Tablet by mouth at bedtime. 90 tablet 1 06/07/20 25 Active omeprazole (PriLOSEC) [address] capsuleIndicati ons:Gastroesoph ageal reflux disease, unspecified whether esophagitis present Take 1 capsule (40 mg total) by mouth 1 (one) time each day. Okay for early fill per provider 90 each 1 06/23/20 25 026 Active magnesium oxide (MAG-OX) 400 mg (241.3 elemental magnesium) tablet Take 1 tablet (400 mg total) by mouth 1 (one) time each day. 90 tablet 03/30/20 25 025 Discontinued simvastatin (ZOCOR) 40 mg tablet Take 1 Tablet by mouth at bedtime. 90 tablet 03/30/20 25 025 Discontinued omeprazole (PriLOSEC) [address] capsule Take 1 capsule (40 mg total) by mouth 1 (one) time each day. 90 each 1 04/26/20 25 025 Discontinued(Re order) Active Problems Problem Noted Date Diagnosed [...] Encounters Date Type Department Care Team Description 06/24/2025 Telephone Adult Medicine [address] [phone] Margaret Reich MD 06/20/2025 Telephone Gastroenterology - [address] [facility] [address] [place] [address] Ebony Soares MD 05/05/2025 11:30 AM EDT Office Visit Adult Medicine [facility] [address] [place], [place] [phone] Margaret Reich MD Primary osteoarthritis of right hand (Primary Dx); Primary hypertension; Mixed hyperlipidemia; Anxiety 05/05/2025 Telephone Adult Medicine [facility] [address] [place], [place] [phone] Margaret Reich MD from Last 3 Months [...] septum repair CARPAL TUNNEL RELEASE Right PROCEDURE: NE NEUROPLASTY &/TRANSPOS MEDIAN NRV CARPAL TUNNE CERVICAL BIOPSY W/ LOOP ELECTRODE EXCISION PROCEDURE: NE CONIZATION CERVIX W/WO D&C RPR ELTRD EXC; COMMENT: subsequent pap normal OTHER SURGICAL HISTORY PROCEDURE: HISTORICAL D&C BREAST BIOPSY Bilateral PROCEDURE: BX BREAST; PERC NEEDLE CORE W/IMAG GUID; COMMENT: all b9 OTHER SURGICAL HISTORY PROCEDURE: IMPLANT BREAST SILICONE/EQ BREAST SURGERY Right PROCEDURE: NE UNLISTED PROCEDURE BREAST; COMMENT: b9 implants 2014 [...] care for your loved ones. For example, school childcare attendant or elderly care for an older adult? [...] 9:30 AM EST Office Visit Adult Medicine [address] [phone] Margaret Reich MD [address] [place], [place] 11/16/2025 10:15 AM EDT Office Visit [facility] [address] [address] Fazal Rodriguez MD [address] [place] [address] Health Maintenance Due Date Last [...] BMP Blood Test 08/18/2024 08/18/2023 COVID-19 Vaccine ( - 2024- season) 2025 09/04/2021, 08/14/2021 Social Influencers of Health Screening 08/05/2025 08/05/2024 Influenza Vaccine (#1) 2026 Postp oned from 04/04/2025 (Patient Refused) Cervical Cancer Screening: HPV 11/27/2026 11/27/2021 Breast Cancer Screening 12/28/2026 12/29/19 25, 12/18/2023, 12/18/2023, Additional history exists Colorectal Cancer [...] LAB CHEMISTRY METHOD 04/18/2025 1:06 PM EDT [facility] Triglycerides 228(H) 0 - 150 mg/dL LAB CHEMISTRY METHOD 04/18/2025 1:06 PM EDT [facility] HDL 40 >=40 mg/dL LAB CHEMISTRY METHOD 04/18/2025 1:06 PM EDT [facility] LDL Calculated 94 0 - 100 mg/dL LAB CHEMISTRY METHOD 04/18/2025 1:06 PM EDT [facility] Comment:Estimated LDL Calcul ated using equation: Total cholesterol - HDL cholesterol - (Triglycerides/5) VLDL Cholesterol Matthew 45.6 mg/dL LAB CHEMISTRY METHOD 04/18/2025 1:06 PM EDT [facility] Non HDL Chol. (LDL+VLDL) 140 <145 mg/dL LAB CHEMISTRY METHOD 04/18/2025 1:06 PM EDT [facility] Chol/HDL Ratio 4.5(H) 0.0 - 4.4 LAB CHEMISTRY METHOD 04/18/2025 1:06 PM EDT [facility] Blood Venous blood specimen / Unknown Venipuncture / Unknown 04/18/2025 8:56 AM EDT 04/18/2025 8:56 AM EDT us Margaret Reich MD LAB BLOOD ORDERABLES Final Resul t [facility] [address] [place] [address], [place] [phone] * MG Mammo Digital Screening w Oliverio [...] is recommended in 1 year. Mammo Location: [facility], [address] [place] [address], [address], . -------- FINAL REPORT -------- Dictated By: Linda Hankins Dictated Date: 12/28/2024 11:50 ET Assigned Physician: Linda Hankins Reviewed and Electronically Signed By: Linda Hankins Signed Date: 12/28/2024 11:59 ET Workstation ID: [id number] Transcribed By: Self Edit Transcribed Date: 12/28/2024 11:57 ET Narrative 12/28/2024 11:59 AM EDT CLINICAL: 59 years old, Female, routine annual exam. Clinical breast exam: . COMPARISON: Mammograms dating back to 10/23/2020 with most recent of 12/18/2023. Breast MRI 12/31/2023 and 06/24/2024. TECHNIQUE: Bilateral MLO and CC views were obtained digitally with 3-D mammogram (digital breast tomosynthesis). Implant-displaced and wmy-poebxos-qoqrrrxww imaging was performed. Computer-aided detection was utilized [...] digitally with 3-Dmammogram (digital breast tomosynthesis). Implant-displaced efukgq-nhjpwhb-ateapbjhb imaging was performed. Computer-aided detection wasutilized in [...] is recommended in 1 year. Mammo Location: [facility], [address] [place] [address], [address], . -------- FINAL REPORT -------- Dictated By: Linda Hankins Dictated Date: 12/28/2024 11:50 ET Assigned Physician: Linda Hankins Reviewed and Electronically Signed By: Linda Hankins Signed Date: 12/28/2024 11:59 ET Workstation ID: [id number] Transcribed By: Self Edit Transcribed Date: 12/28/2024 11:57 ET Result [facility] Margaret Reich MD IMG BI PROCEDURES Final Result * Annual BMP Blood Test (08/18/2023) [facility] Annual BMP Blood Test abstracted Result [facility] Provider HEALTH MAINTENANCE Final Result * Depression Screening (08/18/2023) [facility] Depression Screening abstracted Result [facility] Provider HEALTH MAINTENANCE Final Result * Cervical Cancer Screening: HPV (11/27/2021) [facility] Cervical Cancer Screening: HPV negative, abstracted Result [facility] Provider HEALTH MAINTENANCE Final Result * External Colonoscopy Report (07/13/2018 10:05 AM EST) Anatomical Region Laterality Modality Endoscopy Result [facility] Leonor WEBER GI~PROCEDURE ORDERABLES F inal Result * HIV Screening (08/20/2017) [facility] HIV Screening abstracted Result [facility] Provider HEALTH MAINTENANCE Final Result * Hepatitis C Screening (08/20/2017) [facility] Hepatitis C Screening abstracted Historical Provider HEALTH MAINTENANCE Final Result from Last 3 Months or Most Recently Relevant to Health Maintenance Insurance [facility] PL[facility] Care Teams Pacu Rn Relationship Specialty Start Date End Date Margaret Reich MD [address] [place] [phone] PCP - General Internal Medicine 08/11/24
--- OUTSIDE RECORDS SUMMARY | 2025-06-27 15:09 | XMS_ITS | Encounter Summary ---
Author Organization [facility] Address [address] [place] [address] Care Team Providers Care Network Cable Installer Name Role Phone Margaret Reich MD Primary Care Provider [phone] Reason for Referral * Consultation (Routine) - Closed Specialty Diagnoses / Procedures Referred By Varun t Referred To Contact Rheumatology Diagnoses Arthritis of both hands Margaret Reich MD [address] [place] [address] Phone: tel: fax: [facility] [address] [place] [address] Phone: tel: fax: Referral ID Status Reason Start Date Expiration Date V isits Requested Visits Authorized [id number] Closed Specialty Services Required 06/24/2025 06/24/2026 1 1 Reason for Visit * Reason Onset Date Comments Referral 06/24/2025 Rheumatology - D tiki Gonzalez Encounter Details Date Type Department Care Team (Late st Contact Info) Description 06/24/2025 Telephone Adult Medicine [address] [phone] Margaret Reich MD [address] [place] [address] Social History Tobacco Use Types Packs/Day Years [...] care for your loved ones. For example, early childhood assistant or elderly care for an older adult? [...] PM EST documented as of this encounter Progress Notes * Harleen Mishra - 06/24/2025 11:28 AM EST Referral Request: What insurance does the patient have today? Payor: [employer] PLAN / Plan: [employer] Plan MEDICAID/ Product Type: *No Product type* / Referrals cannot be processed if the insurance is not accurate. If the insurance listed above in red is NO BILLING INFORMATION FOUND FOR THIS ENCOUTNER The patients correct insurance must be obtained and registered in [facility] or their referral can not be processed. Who is calling to request this referral? The patient If the caller is not the patient, what is their name? 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 If YES, when? No Have you checked REVIEW or the APPT DESK to see if this referral has already been done or has visits left? yes Is this visit: Initial Visit Address of Specialist: [address] [place] [address] Phone # of Specialist: [phone] Fax #: (if applicable): [phone] Does patient have an appointment scheduled?: no Date of appointment- (including a retro-request): to be determined, needs referral first Is this appointment related to: Not MVA, worker compensation, or surgery related documented in this encounter Plan of Treatment Upcoming Encounters Date Type Department Care Team (Late st Contact Info) Description 07/15/2025 9:30 AM EST Office Visit Adult Medicine [address] [phone] Margaret Reich MD [address] [place] [address] 11/16/2025 10:15 AM EDT Office Visit Breast Care [address] [phone] Fazal Rodriguez MD [address] [place] [address] Scheduled Referrals Name Type Priority Associated Diagnoses Order Schedule Ambulatory referral to Rheumatology Outpatient Referral Routine Arthritis of both hands 1 Occurrences starting 06/24/2025 until 06/24/2026 documented as of this encounter Visit Diagnoses Diagnosis Arthritis of both hands- Primary documented in this encounter Additional Health Concerns Assessment Noted Time PHQ-9 Depression Total Score: 0 08/05/19 12:37 PM EST documented as of this encounter Care Teams Network Cable Installer Relationship Specialty Start Date End Date Margaret Reich MD [address] [place] [address] PCP - General Internal Medicine 08/11/24 documented as of this encounter
--- OUTSIDE RECORDS SUMMARY | 2025-06-27 15:09 | XMS_ITS | Encounter Summary ---
Author Organization [facility] Address [address] [place] [address] Care Team Providers Care Base Loader Name Role Phone Margaret Reich MD Primary Care Provider [phone] Reason for Visit * Reason Onset Date Comments Nexium questions 06/20/2025 Encounter Details Date Type Department Care Team ([facility] st Contact Info) Description 06/20/2025 Telephone Gastroenterology - [address] [facility] [address] [place] [phone] Ebony Soares MD [address] [place] [address] Social History Tobacco Use Types Packs/Day Years [...] care for your loved ones. For example, director maternal child or elderly care for an older adult? [...] PM EST documented as of this encounter Ordered Prescriptions Prescription Sig Dispense Quantity Refills Last Filled Start Date End Date omeprazole (PriLOSEC) [address] capsuleIndications :Gastroesophageal reflux disease, unspecified whether esophagitis present Take 1 capsule (40 mg total) by mouth 1 (one) time each day. Okay for early fill per provider 90 each 1 06/23/2025 documented in this encounter Progress Notes * Nadege Melgar MA - 06/23/2025 11:33 AM EST OK for early fill added to signature so hopefully pharmacy will release w/o issue * Nadege Melgar MA - 06/23/2025 11:28 AM EST Spoke with patient and clarified she stated she does think that her PCP had submitted Prilosec as aalternative to Nexium due to insurance coverage issues. She was just confused and thought she was supposed to be taking it BID and for that reason she is out early . She is agreeable to take PPI once daily but she will need new RX sent to pharmacy as she was previously taking BID and is now out. Manpreet proposed this to Dr Soares. I let her know I would also FWD to scheduling so we can book her a f/u OV. * Nadege Melgar MA - 06/23/2025 9:49 AM EST Please note in chart review I only see Prilosec coming from PCP as QD.I do not see Nexium prescribed nor do I see any PPI coming from our office. * Lynnette Sorensen - 06/20/2025 3:59 PM EST Patient called regarding her Nexium prescription. She was originally prescribed this by Dr. Soares, but her insurance would not cover it so she was prescribed Esomeprazole capsules. 40mg twice a day. Her pharmacy now is only filling the Esomeprazole 40mg once a day. She asked for a call back for clarification as to what she should be on and if she could get a refill for the correct dosage. Askedfor a call back at documented in this encounter Plan of Treatment Upcoming Encounters Date Type Department Care Team (Late st Contact Info) Description 07/15/2025 9:30 AM EST Office Visit [facility] [address] [place], [place] [phone] Margaret Reich MD [address] [place] [address] 11/16/2025 10:15 AM EDT Office Visit [address] [phone] Fazal Rodriguez MD [address] [place] [address] documented as of this encounter Visit Diagnoses Diagnosis Gastroesophageal reflux disease, unspecified whether esophagitis present- Primary documented in this encounter Discontinued Medications Medication Sig Discontinue Reason Start Date End Da te omeprazole (PriLOSEC) [address] capsule Take 1 capsule (40 mg total) by mouth 1 (one) time each day. Reorder 04/26/2025 06/23/2025 documented as of this encounter Additional Health Concerns Assessment Noted Time PHQ-9 Depression Total Score: 0 08/05/19 12:37 PM EST documented as of this encounter Care Teams Base Loader Relationship Specialty Start Date End Date Margaret Reihc MD [address] [place] [address] PCP - General Internal Medicine 08/11/24 documented as of this encounter
== END 2025-06-27 13:18 | disposition home or self-care (01) ==
PROVIDERS: PCP Transplant Surgery; Visit Provider Physician Assistant Medical
DX: R05.1 Acute cough (principal)

== ENCOUNTER 2025-06-27 11:28 | Outpatient (REF) | payer OTHER, SELFPAY ==
--- OUTSIDE RECORDS SUMMARY | 2025-06-27 16:51 | XMS_ITS | Data Portability ---
Author Organization [facility] [address] Address [address] [place] [address] Assessment No assessment recorded. Plan of Treatment Reminders Order Date Submit Date Provider Last Modified By Organization Details Last Modified Time Details Appointments None recorded. Lab None recorded. Referral None recorded. Procedures None recorded. Surgeries None recorded. Imaging XR, chest, 2 view 2023 024 [email or web address] [facility], [address] [place], [address], 4 14:53:16 Medication Orders azithromyci n 250 mg tablet 2023 024 [facility][id number], [address] [facility] [place], [address], 4 14:50:32 ProAir HFA 90 mcg/actuati on aerosol inhaler 2023 024 [facility]0693, [address] [place], [address], 4 18:22:23 prednisone 20 mg tablet 2023 024 [facility]0693, [address] [place], [address], 4 18:22:23 benzonatate 200 mg capsule 2023 024 [facility]0610, [address] [place], [address], 4 18:22:23 Patient TargetsNo targets recorded. Patient Instructions Encounter Date Encounter Id Patient Instructions Last Modified By Organization Details Last Modified Time 09/19/2023 [id number] bronchitis: care instructions Not available 09/19/2023 18:22:18 09/23/2023 [id number] cough: care instructions Not available 09/23/2023 14:17:28 Reason for Referral None Reported. Results Created Date Observation Date Name Description Value Unit Range Abnormal Flag Note LastModifiedBy Organization Detail LastModifiedTime 09/23/19 24 09/23/2023 XR, chest , 2 view No observ ation record ed. [email or web address] [facility] [address] [place], [address], 09/23/2023 15:07:10 Result Notes None recorded. Problems Name Problem SNOMED Code Status Onset Date Resolution Date Notes Provider Name and Address Organization Details Recorded Time Asthma 903858739 Active ABHIJIT dailey, [place] - [facility] 4 14:10:03 Hyperlipidemia 67370396 Active 2023 CHARLY Baltazar [address] , [place], [address], [place] - [facility] 4 18:17:43 Hypertensive disorder 90858336 Active 2023 CHARLY Baltazar [address] , [place], [address], [place] - [facility] 4 18:17:53 Gastroesophage al reflux disease 246504305 Active 2023 CHARLY Baltazar [address] , [place], [address], [place] - [facility] 4 18:18:06 Esophageal dysmotility 329919302 Active 2023 CHARLY Baltazar [address] , [place], [address], [place] - [facility] 4 18:18:30 Problem Notes None recorded. Procedures Surgical History Date Name Laterality Status Provider Name and Address Organization Details Recorded Time 09/19/19 24 Virtual Visit completed CHARLY Baltazar [address] [place], [address], [place] - [facility] 09/19/2023 18:14:24 Carpal [...] temperature Respiratory rate Heart rate Oxygen saturation Systolic And Diastolic Provider Name and Address Organization Details Last Updated DateTime 4 167.64 cm 23.2 kg/m2 92393.3 g 98.7 [degF] 18 /min 104 /min 95 % 126/87 mm[Hg] ABHIJIT NIEVES [place] - [facility] 4 14:12:23 Social History Question Answer Notes LastModified by Organizat ion Details LastModified Time Tobacco Smoking Status Current Every Day Smoker ABHIJIT dailey [place] - [facility] 09/23/2023 14:08:16 Which Illicit Or Recreational Drugs Have You Used? Marijuana Information not available 09/23/2023 How Much Tobacco Do You Smoke? 0.5 PPD Information not available 09/23/2023 Sex: Unknown Functional Status Question Answer Note LastModified by Organizat ion Details LastModified Time Do you use any [...] mcg/0.3 mL dose 2 completed CHARLY Baltazar [facility] [place], [address], [place] - [facility] 09/19/2023 18:15:46 COVID-19, mRNA, LNP-S, PF, 30 mcg/0.3 mL dose 2 completed CHARLY Baltazar [address], [place], [address], [place] - [facility] 09/19/2023 18:15:46 pneumococcal polysaccharide PPV23 0 completed CHARLY Baltazar, [place], [address], [place] - [facility] 09/19/2023 18:15:46 Tdap 8 completed CHARLY Baltazar, [place], [address], [place] - [facility] 09/19/2023 18:15:46 Td (adult), 2 Lf tetanus toxoid, preservative free, adsorbed 9 completed CHARLY Baltazar [address] [place], [place] [address], [place], [address], [place] - [facility] 09/19/2023 18:15:46 Past Encounters Encounter ID Performer Location Encounter Start Date Encounter Closed Date Diagnosis/Indication Diagnosis SNOMED-CT Code Diagnosis ICD10 Code Diagnosis IMO Codes Diagnosis Note [id number] [facility] [address] [place] [address] 11/06/2018 11:49:24 11/06/2018 12:14:18 [id number] [address] [facility] [address] [place] [address] 02/27/2019 13:00:37 02/27/2019 14:10:59 [id number] [address] [facility] [address] [place] [address] 07/16/2019 13:50:51 07/16/2019 14:54:54 [id number] [address] [address] [place] [address] 10/31/2020 14:26:54 10/31/2020 15:44:48 [id number] [address] [place] [address] 08/16/2017 13:12:34 08/16/2017 14:17:12 [id number] [address] [place] [address] 04/03/2016 13:40:13 04/03/2016 14:22:58 [id number] [address] [place] [address] 06/09/2020 12:03:50 06/09/2020 14:46:53 [id number] [address] [place] [address] 06/03/2015 08:18:01 06/03/2015 08:51:05 [id number] [address] [place] [address] 11/28/2015 11:22:09 11/28/2015 12:39:13 [id number] CHARLY Baltazar [address] [address] [address] 09/19/2023 18:02:22 09/19/2023 19:18:17 Acute bronchitis 42081293 J20.9 Acute bronchitis is a common clinical [...] acute bronchitis is a national and internatio unc health health care priority. In most patients, the [...] breath2. Chest Pain3. Wheezing4. Coughing up Blood [id number] CHARLY Baltazar [address] [facility] [address] [place] [address] 09/23/2023 13:51:35 09/23/2023 14:53:16 Cough 57991027 R05.9 You are being treated for a [...] or lung pathology. Thank you for using [employer] today - please don't hesitate to contact [...] [employer] Member ID Guarantor Name 09/23/2023 1 [facility] - [facility]ICAID [facility] - HMO) ALDAIRCA Nel Kee [id number] Nel Kee Notes Date Note Type Note [...] and an inhaler [place], [address], [place] [facility] 09/19/2023 18:25:33 09/23/19 24 text/ht ml 57 y/o female here with worsening cough. Was treated with azithro a week ago, then started on prednisone and albuterol for cough and wheezing. She is still wheezing and is having a very hard time sleeping [place], [address], [place] [employer] [facility] 09/23/2023 14:53:04 OBGyn Episode No OBEpisode recorded.
[2025-06-27 17:12] LABS: Resp Syncy Virus RNA Qual PCR NEGATIVE (Negative); SARS COV2 PCR INHOUSE NEGATIVE (Negative)
== END 2025-06-27 11:29 | disposition home or self-care (01) ==
LOC: HO.LAB 11:28
PROVIDERS: PCP Transplant Surgery; Visit Provider Physician Assistant Medical
DX: R05.1 Acute cough (principal); R09.89 Other specified symptoms and signs involving the circulatory and respiratory systems; F17.210 Nicotine dependence, cigarettes, uncomplicated
CPT/HCPCS: 87637; 99212